=== PATIENT | female | born 1995 | race Caucasian/White ===

== ENCOUNTER 2024-01-23 10:44 | Emergency (ER) | payer BC ==
[~2024-01-23] VITALS: Ht 162.6 cm; Wt 118.6 kg
[2024-01-23] MEDS ORDERED: WEGOVY2.4 MG/0.7 SQ (11:02)
[2024-01-23] MEDS ORDERED: DESVENLAFAXINE100 MG PO (11:03)
[2024-01-23] MEDS ORDERED: SYNTHROID RP0.1 MG PO (11:03)
[2024-01-23] MEDS ORDERED: SINGULAIR 110 MG/TAB PO (11:04)
[2024-01-23] MEDS ORDERED: DESYREL 100MG100 MG PO (11:04)
[2024-01-23] MEDS ORDERED: ZOVIRAX400 MG PO (11:06)
[2024-01-23] MEDS ORDERED: Ondansetron 4 MG/2 ML VIAL IV ONE (12:00)
[2024-01-23 12:05] LABS: BASO # 0.05 K/mm3 (0.02-0.10); HEMATOCRIT 39.9 % (37.0-47.0); HEMOGLOBIN 12.7 g/dL (12.5-16.0); MEAN CELL VOLUME 79 fl (78-100); MEAN CORPUSCULAR HEMOGLOBIN 25 pg (27-31); MEAN CORPUSCULAR HGB CONC 32 g/dL (33-37); MEAN PLATELET VOLUME 10.5 fl (7.4-10.4); MONO # 0.82 K/mm3 (0.20-0.80); NEU # 8.45 K/mm3 (1.40-6.50); PLATELET COUNT 416 K/mm3 (130-400); RED BLOOD COUNT 5.03 M/mm3 (4.10-5.30); RED CELL DISTRIBUTION WIDTH 15.9 % (11.5-14.5); WHITE BLOOD COUNT 11.8 K/mm3 (4.8-10.8)
[2024-01-23 12:09] LABS: ALBUMIN 4.3 g/dL (3.5-5.0)
[2024-01-23 12:10] LABS: CALCIUM 9.7 mg/dL (8.3-10.5)
[2024-01-23 12:12] LABS: TOTAL PROTEIN 7.3 g/dL (6.4-8.3)
[2024-01-23 12:13] LABS: TOTAL BILIRUBIN 0.4 mg/dL (0.2-1.2)
[2024-01-23] MEDS ORDERED: Ketorolac 30 MG/ML VIAL IV ONE (12:30)
[2024-01-23] MEDS ORDERED: Prochlorperazine 10 MG TAB PO ONE (13:00)
[2024-01-23 14:24] VITALS: BP 126/87
== END 2024-01-23 13:50 | disposition home or self-care (01) ==
LOC: ED 10:44
PROVIDERS: Family Medicine
DX: G43.909 Migraine, unspecified, not intractable, without status migrainosus (principal); R20.2 Paresthesia of skin
CPT/HCPCS: J0780; J1885; J2405